=== PATIENT | male | born 1955 | race Caucasian/White ===

== ENCOUNTER 2016-11-23 07:53 | Day surgery (SDC) | payer OTHER ==
[2016-11-18 15:28] VITALS: BMI 28.5
[2016-11-23] MEDS ORDERED: PROPOFOL 20 ML ONE ×2 (08:06)
[2016-11-23 09:47] VITALS: TEMP 97.6
[2016-11-23 10:18] VITALS: BP 141/77; PULSE 56
--- NOTE | 2016-11-26 10:48 | PATH ---
Surgical Pathology Report Patient Name: WENDY STORY [facility]. Rec. #: [id number] /Age/Gender: 1955 (Age: 61) / M Account: [id number] Location: [facility] Taken: 11/23/2016 Received: 11/23/2016 Reported: 11/26/2016 Physicians: Miles Merrill M.D. Specimen(s) Received RIGHT COLON POLYP Clinical History Family history of colon cancer, history of polyps Polyp Final Diagnosis COLON, RIGHT, POLYP, POLYPECTOMY: FRAGMENTS OF TUBULAR ADENOMA. Electronically Signed Oscar Shine M.D. Gross Description Received in formalin, labeled "right colon" are 3 cortez, irregular portions of soft tissue averaging 0.1 cm in greatest dimension. The specimens are submitted in toto in one cassette. 11/25/201611/25/2016
== END 2016-11-23 10:05 | disposition home or self-care (01) ==
LOC: FASU-ENDO 07:53
PROVIDERS: ATTEND Internal Medicine Gastroenterology
PROC: 0DBK8ZX Excision of Ascending Colon, Via Natural or Artificial Opening Endoscopic, Diagnostic (ICD-10-PCS; principal; 2016-11-23 09:00)
DX: Z86.010 Personal history of colon polyps (principal); Z80.0 Family history of malignant neoplasm of digestive organs; D12.2 Benign neoplasm of ascending colon
CPT/HCPCS: 88305-TC